=== PATIENT | female | born 1985 | race Caucasian/White ===

== ENCOUNTER 2024-10-30 21:00 | Emergency (ER) | payer MEDICAID ==
[~2024-10-30] VITALS: Ht 162.6 cm; Wt 83.0 kg
[2024-10-30 21:06] VITALS: TEMP 97.7
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
[2024-10-30] MEDS: ondansetron 4mg rapidly disintigrating tab PO ONE (21:28)
[2024-10-30] MEDS: HYDROcodone/acetaminophen 5mg/325mg tablet PO ONE (21:28)
--- NOTE | 2024-10-30 21:39 | RADIOLOGY REPORT ---
CHEST RADIOGRAPH REASON FOR EXAM: pain COMPARISON: None TECHNIQUE: One view of the chest is provided FINDINGS: The cardiomediastinal silhouette is within normal limits for technique. There is no focal airspace disease. There is no significant pleural effusion. No acute bony abnormality is identified. IMPRESSION: No radiographic evidence of acute cardiopulmonary process.
--- NOTE | 2024-10-30 21:39 | RADIOLOGY REPORT ---
EXAM: DI KNEE LIMITED (AP/LAT) REASON FOR EXAM: pain TECHNIQUE: AP and lateral views of the left knee are submitted for review. COMPARISON: None FINDINGS: The bones demonstrate normal mineralization. There is no acute fracture or dislocation. There is no significant knee effusion. The soft tissues are grossly unremarkable. IMPRESSION: No acute fracture or dislocation.
[2024-10-30 22:09] VITALS: BP 131/86; PULSE 94; RESP 12; O2SAT 97
== END 2024-10-30 22:11 | disposition home or self-care (01) ==
LOC: ER 21:01
DX: S80.212A Abrasion, left knee, initial encounter (principal); V49.9XXA Car occupant (driver) (passenger) injured in unspecified traffic accident, initial encounter; Y93.89 Activity, other specified; Y92.89 Other specified places as the place of occurrence of the external cause; Y99.8 Other external cause status
CPT/HCPCS: 71045; 73560; 99284

== ENCOUNTER 2025-02-04 21:21 | Emergency (ER) | payer MEDICAID ==
[~2025-02-04] VITALS: Ht 162.6 cm; Wt 88.0 kg
[2025-02-04 21:25] VITALS: BP 148/86; PULSE 88; RESP 16; TEMP 97.8; O2SAT 100
[2025-02-04] MEDS: amox tr/potassium clavulanate 875/125mg TAB PO ONE (22:10)
--- NOTE | 2025-02-04 22:30 | Physician Documentation ---
History of Present Illness ~ Chief Complaint: Mouth Pain Stated Complaint: MOUTH PAIN Time Seen by MD: 21:45 Primary Medical Doctor: Dr. Epperson [facility] Patient is a very pleasant 39-year-old female presents to the emergency department for evaluation of a fractured tooth in the upper left gumline at approximately the 2nd to 3rd molar. Patient reports that she fractured the tooth several months ago. Since that time it has become progressively more sore and swollen. Patient denies fever chills nausea vomiting diarrhea does have some associated swelling to the left cheek mild lymphadenopathy noted. Patient does not currently have a dentist but reports that she will attempt to establish care with a dentist. No other symptoms reported at this time. Medication Reconciliation Allergies: Coded Allergies: No Known Allergies (Unverified , 02/04/25) Review of Systems ROS As stated above in the HPI, otherwise all systems are reviewed and negative. Physical Exam Vital Signs: Temperature: 97.8, Source: Temporal, Heart Rate: 88, Respiratory Rate: 16, BP: 148/86, Pulse Oximetry: 100, Weight: 88.000 Oxygen Flow Rate: 0 Physical Exam VITALS: Reviewed and as above. GENERAL: Alert, no apparent distress. HEENT: Normocephalic, atraumatic, PERRL, EOMI, dry mucosa, no erythema, mild edema noted to the left cheek, mild edema noted in the gumline of the upper left jaw with the associated fractured tooth noted, mild left lymphadenopathy noted during examination. RESPIRATORY: Lungs clear, normal breath sounds, no respiratory distress. MUSCULOSKELETAL No deformities, no edema SKIN: Warm and dry, no rash NEURO: Oriented x4, No motor or sensory deficit PSYCH: Normal mood and affect, no agitation Progress Results/Orders Results/Orders Completed Orders - PASHA MOREIRA YARD BRAKEMAN Amox Tr/Potassium Clavulanate (Augmentin (02/04/25 21:45) Medications Received in ER Medications (Trade) Dose Ordered Sig/Ifeoma Route PRN Reason Start Time Stop Time Status Last Admin Dose Admin (Augmentin 875-125mg tablet) 1 tab ONCE ONCE PO 02/04/25 21:45 02/04/25 21:46 DC 02/04/25 22:10 1 TAB Vital Signs 02/04/25 21:25 Temp 97.8 Pulse 88 Resp 16 B/P (MAP) 148/86 Pulse Ox 100 O2 Flow Rate 0 Medical Decision Making Additional information obtaine: other Findings Chief Complaint: Fractured tooth with progressive pain and swelling History of Present Illness: 39-year-old female presents with several months of progressive pain and swelling at the upper left 2nd-3rd molar region following tooth fracture. Patient reports associated left cheek swelling and mild cervical lymphadenopathy. Denies fever, chills, nausea, vomiting, or diarrhea. No current dentist established. Physical Examination: Fractured tooth noted at upper left gumline (approximately 2nd-3rd molar). Left cheek swelling present. Mild cervical lymphadenopathy noted. No evidence of fascial space involvement, airway compromise, or systemic toxicity. Medical Decision Making: This patient presents with a localized acute apical abscess secondary to chronic tooth fracture. The presence of localized swelling and lymphadenopathy without systemic signs (fever, malaise) or evidence of fascial space involvement indicates a localized odontogenic infection requiring antibiotic therapy and urgent dental referral. [1] Per [employer] guidelines, amoxicillin-clavulanate (Augmentin) is appropriate first-line therapy for odontogenic infections when definitive dental treatment cannot be immediately provided. [1-2] The patient received her first dose in the emergency department and will continue a 3-7 day course. Amoxicillin-clavulanate provides enhanced coverage against gram-negative anaerobes compared to amoxicillin alone and is particularly appropriate given the chronicity of this infection. [2-3] The patient should discontinue antibiotics 24 hours after symptom resolution, irrespective of the prescribed duration. [1] Patient was counseled to establish urgent dental care within 1-2 days, as definitive treatment (root canal therapy or extraction) is required to address the source of infection. [4-5] Return Precautions: Patient instructed to return immediately for worsening swelling (particularly involving the floor of mouth, neck, or periorbital region), difficulty swallowing or breathing, high fever, inability to open mouth (trismus), severe pain uncontrolled by medications, or any other concerning symptoms. These findings could indicate progression to deep neck infection, fascial space involvement, or systemic spread requiring emergent intervention. [6-8] Disposition: Discharge home with prescriptions and close outpatient follow-up. Plan: Complete course of amoxicillin-clavulanate as prescribed Urgent dental referral (within 1-2 days) for definitive treatment Primary care follow-up as scheduled Analgesics as needed for pain control Return to emergency department for any warning signs as discussed Ear Diff. Dx: Considerations: Include: Abrasion, Cerumen impaction, Foreign body, Otitis externa, Barotrauma, Otitis media, Perforation, Referred pain- dental, Referred pain-pharyngitis, Referred pain-sinusitis, Referred pain-TMJ syn., Tympanic Membrane Injury, Other Eye Diff. Dx: Considerations: Include: Chalazoin, Conjuctivits-allergic, Conjuctivitis-bacterial, Conjuctivits-chlamydial, Conjuctivitis-viral, Corneal abrasion, Corneal laceration, Corneal ulceration, Foreign body-conjuctiva, Foreign body-corneal, Foreign body-intraocular, Foreign body-lid, Glaucoma, Globe rupture, Hordeolum, Iritis, Orbital cellulitis, Periobital cellulitis, Retinal artery occulsion, Retinal vein occlusion, Rust ring, Subconjunctival hem, Ultraviolet keratitis, Uveitis, Vitreous hemorrhage, Other Nose Diff. Dx: Considerations: Include: Abrasion, Anterior nasal bleed, Avulsion, Contusion, Coagulopathy, Fracture-nasal bone, Fracture-septum, Hypertension, Laceration, Other, Posterior nasal bleed, Retained foreign body, Septal hematoma Tooth Diff. Dx: Considerations: Include: Alveolar fracture, Aveolar osteitis, ANUG, Facial cellulitis, Periapical abscess, Periodontal abscess, Post- extraction bleeding, Pulpitis, Trigeminal neuralgia, Tooth-avulsion, Tooth-eruption, Tooth-fracture, Tooth-subluxation, Other Throat Diff Dx: Considerations: Include: AIDS, Epiglottitis, Esophageal candidiasis, Hand foot mouth disease, Herpangina, Herpetic stomatitis, Herpes simplex, Infection mononucleosis, Immunodeficiency, Reji's angina, Peritonsillar abscess, Peritonsillar cellulitis, Pharyngitis-diphtheria, Pharyngitis-strepococcal, Pharyngitis-viral, Thrush, URI, Other Departure Disposition: 01 HOME / SELF CARE / HOMELESS Impression: Primary Impression: Periapical abscess Condition: Stable Discharge Instructions: Dental Abscess, [id number] Additional Instructions: DISCHARGE INSTRUCTIONS Tooth Infection (Dental Abscess) Your Diagnosis You have an infection in your tooth caused by a fractured tooth. This requires treatment by a dentist to fix the problem permanently. Medications Antibiotic: Take Augmentin (amoxicillin-clavulanate) exactly as prescribed. Complete the full course even if you feel better. Stop the antibiotic 24 hours after your symptoms completely go away. [1] Pain Relief: You may take ibuprofen 400-600 mg with acetaminophen (Tylenol) 1000 mg together for pain. Do not exceed 2400 mg of ibuprofen or 4000 mg of acetaminophen in 24 hours. [3] What You Need to Do See a dentist within 1-2 days. This is very important. The antibiotic will help control the infection temporarily, but you need a dentist to treat the tooth (root canal or extraction) to cure the infection. [1-2] Follow up with your primary care doctor as scheduled. Return to the Emergency Department Immediately If You Have: Increased swelling of your face, neck, or under your jaw Swelling around your eye Difficulty swallowing or breathing Difficulty opening your mouth High fever (temperature over 101F) Severe pain not controlled by medications Worsening symptoms despite taking antibiotics [1] General Care Rinse your mouth with warm salt water several times daily Avoid chewing on the affected side Maintain good oral hygiene by brushing and flossing gently Important Reminders The antibiotics treat the infection but do not fix the tooth problem. You must see a dentist to prevent the infection from coming back. [1-2] If you cannot find a dentist or get an appointment within 2 days, call your primary care doctor or return to the emergency department. [1] Referrals: NO PRIMARY CARE PROVIDER (PCP) Prescriptions Amox Tr/Potassium Clavulanate 875/125 MG (Augmentin 875/125 MG) 875 Mg-125 Mg Tablet 1 TAB PO Q12H for 10 Days, #20 TAB Prov: PASHA MOREIRA 02/04/25 Education Educated: Patient Educated regarding: diagnosis, treatment, need for follow up Signature Scribe Signature: A Attestation: Scribed for Pasha Moreira by AURA Solorio . 02/04/25 22:30 PASHA MOREIRA Feb 04, 2025 22:30
[2025-02-04] MEDS ORDERED: AMOX-580 PO (22:38)
== END 2025-02-05 00:01 | disposition home or self-care (01) ==
LOC: ER 21:21
DX: K04.7 Periapical abscess without sinus (principal)
CPT/HCPCS: 99283